=== PATIENT | male | born 1945 | race Caucasian/White ===

== ENCOUNTER 2024-11-22 06:50 | Day surgery (SDC) | payer OTHER, BC ==
[2024-11-19 17:19] VITALS: BMI 31.9
[2024-11-22] MEDS ORDERED: MIDAZOLAM HCL 2 MG/2 ML SINGLE DOSE VIAL ONE ×2 (08:13→10:23)
[2024-11-22] MEDS ORDERED: BUPIVACAINE HCL/PF 0.5% (5 MG/ML) 30 ML VIAL IJ ONE (08:13)
[2024-11-22] MEDS ORDERED: DEXAMETHASONE SOD PHOSPHATE 10 MG/1 ML VIAL ONE (08:14)
[2024-11-22] MEDS ORDERED: ACETAMINOPHEN INJECTION 100 ML ONE (08:14)
[2024-11-22] MEDS ORDERED: BUPIVACAINE HCL/PF 0.5% (5MG/ML) 10 ML VIAL ONE (08:14)
[2024-11-22] MEDS ORDERED: VANCOMYCIN 1,000 MG VIAL (RESTRICTED TO ID ONLY) ONE (08:41)
[2024-11-22] MEDS ORDERED: BUPIVACAINE HCL/PF 2.5 MG/ML - 30 ML VIAL IJ ONE (08:42)
[2024-11-22] MEDS ORDERED: KETOROLAC TROMETHAMINE 60 MG/2 ML VIAL ONE (08:42)
[2024-11-22] MEDS ORDERED: ONDANSETRON 4 MG/2 ML VIAL IVPUSH PRN ×2 (08:59→11:47)
[2024-11-22] MEDS ORDERED: PROPOFOL 20 ML ONE ×4 (09:25→11:10)
[2024-11-22] MEDS ORDERED: TRANEXAMIC ACID 1000 MG/10 ML VIAL ONE ×2 (09:28→11:12)
[2024-11-22] MEDS ORDERED: ceFAZolin SODIUM 1 GM VIAL ONE (09:28)
[2024-11-22] MEDS: VANCOMYCIN 1,000 MG VIAL (RESTRICTED TO ID ONLY) IVPB ONE ×2 (11:16→11:30)
[2024-11-22] MEDS ORDERED: MAGNESIUM HYDROX 2400MG/30ML ORAL SUSPENSION 30 ML CUP PO PRN (11:47)
[2024-11-22] MEDS ORDERED: MAG HYDROX/AL HYDROX/SIMETH 30 ML UNIT-DOSE CUP PO PRN (11:47)
[2024-11-22] MEDS ORDERED: KETOROLAC TROMETHAMINE 30 MG/1 ML VIAL ONE (11:52)
[2024-11-22] MEDS: ACETAMINOPHEN 1000 MG/100 ML BAG IVPB SCH (18:14)
[2024-11-22] MEDS: CEFAZOLIN 2 GM/D5W 2 GRAM/50 ML ML IVPB SCH (18:14)
[2024-11-22] MEDS: LACTATED RINGERS SOLUTION 1,000 ML IV SCH (18:59)
[2024-11-22] MEDS: ATORVASTATIN CA 40 MG TABLET (FP) PO SCH (21:37)
[2024-11-22] MEDS: ASPIRIN 81 MG CHEWABLE TABLETS PO SCH (21:37)
[2024-11-22] MEDS: FAMOTIDINE 20 MG TABLET PO SCH (21:38)
[2024-11-22] MEDS: SENNOSIDES/DOCUSATE COMBO (SENNA PLUS) TABLET (UD) PO SCH (21:38)
[2024-11-23] MEDS: oxyCODONE HCL 5 MG TABLET PO PRN ×2 (01:33→09:15)
[2024-11-23] MEDS: LISINOPRIL 10 MG TABLET PO SCH (09:16)
[2024-11-23] MEDS: MULTIVITAMINS (DAILY MVI) TABLET (FP) PO SCH (09:17)
[2024-11-23] MEDS: DEXAMETHASONE 4 MG TABLET (FP) PO ONE (10:03)
[2024-11-23 14:32] VITALS: BP 107/55; PULSE 64; RESP 17; TEMP 98.4
== END 2024-11-23 16:16 | disposition home or self-care (01) ==
LOC: FASUSAT 06:50 → FM/S 13:32 → FASUSAT 11-23 16:16
PROVIDERS: ATTEND Internal Medicine
PROC: 8E0Y0CZ Robotic Assisted Procedure of Lower Extremity, Open Approach (ICD-10-PCS; 2024-11-22)
PROC: 0SRC0JA Replacement of Right Knee Joint with Synthetic Substitute, Uncemented, Open Approach (ICD-10-PCS; principal; 2024-11-22 09:55)
DX: M17.11 Unilateral primary osteoarthritis, right knee (principal)
CPT/HCPCS: 20985; 27447; C1776; S2900; 73560-TC-RT-FY; 94760; 97010-GP; 97116-GP; 97162-GP; J1100